=== PATIENT | female | born 1985 | race Caucasian/White ===

== ENCOUNTER 2017-07-15 13:45 | Emergency (ER) | payer SELFPAY, OTHER, MEDICAID ==
[2017-07-15] MEDS: IBUPROFEN 600 MG TAB PO (16:11)
[2017-07-15 16:15] LABS: URINE PH (Dip) POC 5.5 (5.0-8.5)
[2017-07-15 16:15] LABS: URINE BLOOD (Dip) POC Negative (NEGATIVE); URINE GLUCOSE (Dip) POC Negative (NEGATIVE); URINE KETONES (Dip) POC Negative (NEGATIVE); URINE LEUKOCYTE EST (Dip) POC Negative (NEGATIVE); URINE NITRITE (Dip) POC Negative (NEGATIVE); URINE TOTAL PROTEIN POC Trace (NEGATIVE)
[2017-07-15] MEDS: DOXYCYCLINE 100 MG TAB PO (17:27)
== END 2017-07-15 17:40 | disposition home or self-care (01) ==
LOC: FTE 13:45
DX: J18.9 Pneumonia, unspecified organism (principal)
CPT/HCPCS: 71045; 81003; 93005; 99284-25